=== PATIENT | male | born 1945 | race Caucasian/White ===

== ENCOUNTER 2023-07-23 12:01 | Outpatient (REF) | payer MEDICARE, OTHER, SELFPAY ==
[2023-07-23 14:08] LABS: Erythrocyte Sedimentation Rate 2 MM/HR (0-15)
== END 2023-07-23 12:02 | disposition home or self-care (01) ==
LOC: HO.LAB 12:01
PROVIDERS: Visit Provider Psychiatry & Neurology Neurology
DX: G62.9 Polyneuropathy, unspecified (principal)
CPT/HCPCS: 36415; 85652